=== PATIENT | male | born 2000 | race Caucasian/White ===

== ENCOUNTER 2024-04-21 15:18 | Emergency (ER) | payer OTHER ==
[2024-04-21 15:23] VITALS: BP 119/69; PULSE 72; RESP 20; TEMP 98.4; BMI 23.3
[2024-04-21] MEDS ORDERED: ACETAMINOPHEN 500 MG TABLET (FP) ONE (15:52)
[2024-04-21] MEDS: ACETAMINOPHEN 325 MG TABLET (FP) PO ONE (15:54)
[2024-04-21 16:03] LABS: URINE APPEARANCE CLEAR; URINE BILIRUBIN NEGATIVE (NEGATIVE); URINE COLOR YELLOW; URINE GLUCOSE (UA) NEGATIVE (NEGATIVE); URINE KETONE NEGATIVE (NEGATIVE); URINE LEUK ESTERASE NEGATIVE (NEGATIVE); URINE NITRITE NEGATIVE (NEGATIVE); URINE PROTEIN NEGATIVE (NEGATIVE); URINE UROBILINOGEN 0.2 mg/dL (0.2-1.0)
== END 2024-04-21 18:46 | disposition home or self-care (01) ==
LOC: JER 15:18
DX: I86.1 Scrotal varices (principal); N50.811 Right testicular pain; R30.0 Dysuria
CPT/HCPCS: 36415; 76870-TC; 81003; 87491; 87591; 99284-25